=== PATIENT | female | born 1995 | race Caucasian/White ===

== ENCOUNTER 2024-01-23 22:11 | Inpatient (IN) | payer OTHER, SELFPAY ==
[2024-01-23 22:40] VITALS: BMI 49.1
[2024-01-23 22:50] LABS: Basophils Percent Auto 0.3 % (0.2-1.2); Eosinophils Absolute Auto 0.1 K/mm3 (0-0.3); Eosinophils Percent Auto 0.9 % (0-4.4); Hematocrit 37.7 % (37.0-47.0); Hemoglobin 12.7 g/dL (12.0-15.0); Immature Granulocyte Absolute 0.06 K/mm3 (0.00-0.031); Immature Granulocyte Percent A 0.5 % (0-0.5); Lymphocytes Absolute Auto 2.15 K/mm3 (0.9-3.2); Lymphocytes Percent Auto 18.4 % (18.3-44.2); Mean Corpuscular HGB Conc 33.7 g/dl (32-36); Mean Corpuscular Hemoglobin 29.1 pg (26-34); Mean Corpuscular Volume 86.3 fl (80-100); Mean Platelet Volume 12.3 fl (7.4-10.4); Monocytes Absolute Auto 0.8 K/mm3 (0.1-0.6); Monocytes Percent Auto 7.2 % (2.6-8.5); Neutrophils Absolute Auto 8.5 K/mm3 (1.3-6.7); Neutrophils Percent Auto 72.7 % (45.5-73.1); Platelet Count Result 241 k/mm3 (150-375); Red Blood Count 4.37 M/mm3 (4.2-5.4); Red Cell Distribution Width 13.3 % (11.5-14.5); White Blood Count 11.7 K/mm3 (4.5-10.0)
[2024-01-23] MEDS: ceFAZolin 2 GM/D5W 50 ML 2 GM/50 ML BAG IVPB (23:00)
[2024-01-23] MEDS: LACTATED RINGERS 1,000 ML 125 ML IV CONT (23:00)
[2024-01-23 23:53] LABS: HIV 1/2 Ab P24 Ag Result Negative (Negative)
[2024-01-24] VITALS (36 sets, daily range): BP systolic 96–145; BP diastolic 54–91; PULSE 71–104; RESP 16–20; TEMP 36.1–37.1; O2SAT 97–100
[2024-01-24] MEDS: ONDANSETRON INJ 4 MG/2 ML VIAL IV PUSH ×2 (03:49→10:15)
[2024-01-24] MEDS: ACETAMINOPHEN 500 MG TABLET 1000 MG PO (03:49)
[2024-01-24] MEDS: FAMOTIDINE 20 MG/2 ML VIAL IV PUSH (03:49)
[2024-01-24] MEDS: AZITHROMYCIN 500 MG/NS 250 ML 500 MG/250 ML BAG 250 MG IVPB (03:55)
--- NOTE | 2024-01-24 04:02 | WPDANESEPP ---
Anes - Eval Pre Procedure Procedure: Operation Date: 01/24/24 04:00 Proposed Procedures p Section - Mg Nichols MD Operation Date: 01/31/24 07:30 Proposed Procedures p Previous Section - Jeremy Mnoson MD Date/Time: 01/24/24 04:02 Surgeon: Simone Preop Diagnosis: previous c section Pre Op Diagnosis: SROM Patient Data Age: 28 Gender: F Height: 1.63 m Weight: 130 kg Last Vital Signs Pulse 90 01/24/24 03:58 BP 145/82 H 01/24/24 03:58 Allergies Allergy/AdvReac Type Severity Reaction Status Date / Time Penicillins Allergy Hives Verified 01/14/24 15:39 Home Medications Medication Instructions Recorded Confirmed Type aspirin 81 mg tablet 81 mg PO DAILY 01/14/24 01/14/24 History vits no.126-ferrous fum 1 tablet PO DAILY 01/14/24 01/14/24 History 28 mg iron-folic acid 800 mcg tablet (Classic ) sertraline 150 mg capsule 150 mg PO DAILY 01/14/24 01/14/24 History Laboratory Tests 01/23/24 01/23/24 22:45 23:27 WBC 11.7 H K/mm3 (4.5-10.0) RBC 4.37 M/mm3 (4.2-5.4) Hgb 12.7 g/dL (12.0-15.0) Hct 37.7 % (37.0-47.0) MCV 86.3 fl (80-100) MCH 29.1 pg (26-34) MCHC 33.7 g/dl (32-36) RDW 13.3 % (11.5-14.5) Plt Count 241 k/mm3 (150-375) MPV 12.3 H fl (7.4-10.4) Immature Gran % (Auto) 0.5 % (0-0.5) Neut % (Auto) 72.7 % (45.5-73.1) Lymph % (Auto) 18.4 % (18.3-44.2) Stark % (Auto) 7.2 % (2.6-8.5) Eos % (Auto) 0.9 % (0-4.4) Baso % (Auto) 0.3 % (0.2-1.2) Lymph # (Auto) 2.15 K/mm3 (0.9-3.2) Stark # (Auto) 0.8 H K/mm3 (0.1-0.6) Eos # (Auto) 0.1 K/mm3 (0-0.3) Baso # (Auto) 0.0 K/mm3 (0.0-0.1) Abs Immat Gran (auto) 0.06 H K/mm3 (0.00-0.031) Absolute Neuts (auto) 8.5 H K/mm3 (1.3-6.7) Absolute Nucleated RBC 0.000 K/mm3 (0.0-0.012) Nucleated RBC % 0.0 % (0.0-0.2) RPR Pending HIV 1&2 Ab/P24 Ag 4thGn Negative (Negative) Blood Type B Positive Antibody Screen Negative Patient hx anesthesia problems: none Family hx anesthesia problems: none Results Review: All pre-operative results and documents have been reviewed as part of the pre-operative evaluation. [facility]LY [facility] Past Medical History Medical History Anxiety Eczema GERD (gastroesophageal reflux disease) Morbid obesity PCOS (polycystic ovarian syndrome) and not yet delivered Psoriasis Ulcerative colitis Family History Family History Grandparent Diabetes mellitus Congestive heart failure Sibling Hypothyroid Hypertension Sibling Acute ITP Grandparent Cancer Social History Social History Substance use: never Spiritual care concerns: No Exam Day of Procedure 01/24/24 04:02 Patient weight: morbidly obese Heart: regular rate and rhythm Lungs: clear to auscultation Airway: Mallampati scale class III
--- NOTE | 2024-01-24 04:03 | WPDHPUPDATE1 ---
History and Physical Update Update Date/Time: 01/24/24 04:03 History and Physical has been reviewed, including an updated exam of the patient. There are NO changes in the patient's condition. Risks, benefits, and alternatives have been discussed and questions answered. Patient agrees to proceed with procedure.
--- NOTE | 2024-01-24 04:04 | PM.IMHP ---
H&P: HPI History of Present Illness Date/Time: 01/24/24 04:04 Chief Complaint: Labor Narrative: this patient is a 28-year-old multiparous female at 38 weeks gestation was in labor and has a previous delivery. this patient was scheduled to have a delivery. She labored to complete and pushed for 4 hours previously. The patient understands the details of the procedure. The procedure has been explained in detail. She understands the risks. She understands that injuries may occur that result in hospitalization, more surgery, and severe illness. She understands risk of hemorrhage and infection. She denies any chest pain or shortness of breath. She denies any nausea, vomiting, fever, chills. Review of Systems Review of Systems: All systems reviewed & are unremarkable except as noted in HPI and below Constitutional: Constitutional: Denies chills, Denies fatigue, Denies fever(s) and Denies weakness Eyes: Eyes: Denies blurry vision, Denies change in vision, Denies loss of peripheral vision, Denies loss of vision, Denies other visual disturbances and Denies eye pain ENT: Denies vertigo, Denies dizziness, Denies hearing loss, Denies mouth pain, Denies nasal obstruction, Denies neck mass and Denies neck pain Cardiovascular: Cardiovascular: Denies chest pain, Denies diaphoresis, Denies syncope, Denies leg edema and Denies dyspnea Respiratory: Respiratory: Denies chest congestion, Denies cough, Denies hemoptysis, Denies dyspnea and Denies wheezing Gastrointestinal: Gastrointestinal: Denies abdominal pain, Denies constipation, Denies diarrhea, Denies nausea and Denies vomiting Genitourinary: Genitourinary: Denies hematuria, Denies change in libido, Denies nocturia, Denies genital lesions, Denies flank pain and Denies urinary urgency Musculoskeletal: Musculoskeletal: Denies abnormal gait, Denies back pain, Denies myalgias, Denies arthralgias, Denies joint swelling, Denies muscle weakness and Denies neck pain Integumentary/Breasts: Skin/Breast: Denies swelling, Denies breast pain, Denies breast mass, Denies dry skin, Denies nipple discharge, Denies unusual bruising and Denies jaundice Neurologic: Denies Neuro-related abnormal movements, Denies Abnormal speech present, Denies abnormal gait, Denies behavioral changes, Denies confusion, Denies vertigo, Denies dizziness, Denies syncope, Denies loss of vision, Denies memory loss, Denies convulsions and Denies weakness Psychiatric: Psychiatric: Denies abnormal sleep pattern, Denies behavioral changes, Denies change in libido, Denies confusion, Denies depression, Denies anhedonia and Denies memory loss Endocrine: Endocrine: Reports no additional endocrine complaints, Denies change in libido and Denies fatigue Hematologic/Lymphatic: Hematologic/Lymphatic: Reports no additional hematologic/lymphatic complaints Allergic/Immunologic: Allergic/Immunologic: Reports no additional allergic/immunologic complaints and Denies wheezing PMFSH Past Medical History Medical History Morbid obesity and not yet delivered Family History Family History Grandparent Diabetes mellitus Congestive heart failure Sibling Hypothyroid Hypertension Sibling Acute ITP Grandparent Cancer Social History Social History Substance use: never Spiritual care concerns: No Meds Home Medications and Allergies Home Medications Medication Instructions Recorded Confirmed Type aspirin 81 mg tablet 81 mg PO DAILY 01/14/24 01/14/24 History vits no.126-ferrous fum 1 tablet PO DAILY 01/14/24 01/14/24 History 28 mg iron-folic acid 800 mcg tablet (Classic ) sertraline 150 mg capsule 150 mg PO DAILY 01/14/24 01/14/24 History Allergies Allergy/AdvReac Type Severity Reaction Status Date / Time P
[2024-01-24] MEDS: LACTATED RINGERS 1,000 ML 125 ML IV CONT (04:12)
--- NOTE | 2024-01-24 05:30 | W.PM.OBCSD ---
OB - Delivery Note Procedure Delivery date: 01/24/24 Pre-op diagnosis: Previous Delivery Post-op Diagnosis: Same Induction method: None Procedure Performed: Repeat Surgeon: Mg Nichols MD Anesthesia type: Spinal Description of Procedure/Findings: The patient was taken the operating room.? She was prepped and draped in dorsal supine position with a leftward tilt.? This was done after spinal anesthetic was applied.? A low-transverse skin incision was made and carried down till of the fascia with the knife.? The fascial incision was made with the knife.? The fascial incision was extended laterally with Guthrie scissors.? The fascia was tented upward superiorly and inferiorly the rectus muscles were dissected off bluntly.? The rectus muscles were the midline.? The preperitoneal fat and peritoneum were dissected open bluntly at the superior aspect of the rectus muscles.? The peritoneal incision was extended superior and inferior with good position of bladder.? The uterine incision was made with a scalpel down to the level of the amniotic cavity.? The amniotic cavity was entered bluntly.? The was delivered.? The cord was clamped and cut and the was handed off to waiting pediatric staff.? Cord bloods were obtained.? The placenta was removed manually.? The uterus was exteriorized.? The uterus was cleared of all clots, debris and membranes.? The uterus was closed in 0 Vicryl running lock fashion.? An imbricating over a was placed along the incision line as well.? The uterus was returned to the abdomen.? The gutters were cleared of all clots and debris.? The fascia was closed with 0 Vicryl running fashion.? The subcutaneous tissue was irrigated pinpoint bleeders were cauterized.? The skin was closed with subcuticular absorbable josé luis.? The skin incision line was covered with glue.? The patient tolerated the procedure well.? She has taken recovery room in stable condition.? Sponge lap and needle counts were correct x2.? Baby Weeks of gestation at delivery: 38
[2024-01-24] MEDS: MORPHINE SULFATE INJ (*CRX) 10 MG/ML AMP 2 MG IV PUSH ×3 (06:40→06:53)
--- NOTE | 2024-01-24 07:30 | PC.NURSE ---
Patient transferred to post room #288 per stretcher from labor and delivery. Support person present. Oriented to unit, room, information board, rooming in, admission packet and security measures. Patient verbalizes understanding.
[2024-01-24] MEDS: OXYTOCIN 30 UNITS/NS 500 ML 30 UNITS/500 ML BAG 125 UNITS IV CONT (08:52)
[2024-01-24] MEDS: KETOROLAC 15 MG/ML VIAL (*BKC) IV PUSH ×2 (09:47→17:05)
[2024-01-24] MEDS: SIMETHICONE 80 MG TAB.CHEW PO ×2 (09:48→12:23)
[2024-01-24] MEDS: LIDOCAINE 5% PATCH 1 PATCH TRANSDERM (10:15)
[2024-01-24 11:26] LABS: Rapid Plasma Reagin Non-Reactive (NonReactive)
[2024-01-24] MEDS: SERTRALINE HCL 50 MG TABLET 150 MG PO (12:23)
[2024-01-24] MEDS: DEXTROSE 5%/0.45% SOD CHL 1,000 ML 125 ML IV CONT (12:51)
--- NOTE | 2024-01-24 13:18 | PC.NURSE ---
[id number] Introductions were made, then consulted with patient to assess needs related to . Mother led the conversation with her?plans to feed?her infant and the?experience so far. Encouraged understanding of the benefits of skin to skin (demonstrating unwrapping and placing upright on her chest), stimulating with massage touch, changing positions to encourage wakefulness, how to watch for early feeding cues, responsive feeding, feeding on demand (aiming for 8-12 times in 24 hours, about every 2-3 hours), milk production, building/maintaining a milk supply, duration of feeding, signs of adequate intake/output and how to record on the feeding sheet. Mother works well with her with encouragement, education and shares her milk went away after 3 weeks with her first child. Mother demonstrates the skill of hand expression and expresses copious milk from each breast. Infant is now less than 6 hours old and reluctant to breastfeed. Reviewed positioning and ear, shoulder, hip alignment, supporting the breast to facilitate a deep latch, asymmetrical latch (off-center), leading with the chin with a big, open, wide gape and body close to mother. latched optimally to the left breast in cross cradle position. Education given to the mother of how to visualize the suckling (with good rocking jaw motion), swallows (dropping of the lower jaw) and how to listen for drinking at the breast (the ka sound) which demonstrates, however; is not interested in maintaining at this time. Infant was able to maintain latch without pain to mother. Discussed protecting the nipple with optimal positioning and latching. prefers to gaze at parent right now rather than latch. Encouraged [id number] and responding to feeding cues. Reviewed comfort measures of healing with a warm, wet washcloth to rinse breast, then leave open to air-dry, good handwashing when or touching the breast/nipples to prevent infection. Mother voiced understanding of skin to skin, stimulating with massage touch, responsive feedings, hand expressed colostrum, talking to to encourage if it has been 2 -2.5 hours since the start of the last , to call if does not latch, or if there is discomfort with . Resources used for education were facilitated with the visual educational handouts/ tool/mom and baby guide. Inpatient/outpatient resources provided with feeding sheet, name written on the communication board, and the mom/baby guide. Parents voiced understanding of information, demonstrated learning and will call if there is a request for assistance. Visitors are at bedside. 1225 - Purposefully rounded to assess for and mother shared that infant breastfed on both breasts with more feeding on the right than the left swallowing without pain.
[2024-01-24] MEDS: DOCUSATE SODIUM 100 MG CAPSULE PO (17:05)
[2024-01-24] MEDS: ACETAMINOPHEN 325 MG TABLET 650 MG PO (17:06)
[2024-01-25] MEDS: IBUPROFEN 600 MG TABLET PO ×4 (00:09→22:00)
[2024-01-25] MEDS: ACETAMINOPHEN 325 MG TABLET 650 MG PO ×4 (00:09→22:00)
[2024-01-25] MEDS: HYDROcodone/acetaminophen (*CRX) 10-325 MG TABLET 1 TAB PO ×3 (01:11→15:00)
[2024-01-25 05:06] LABS: Basophils Percent Auto 0.2 % (0.2-1.2); Eosinophils Absolute Auto 0.1 K/mm3 (0-0.3); Eosinophils Percent Auto 0.8 % (0-4.4); Hematocrit 32.3 % (37.0-47.0); Hemoglobin 10.4 g/dL (12.0-15.0); Immature Granulocyte Absolute 0.05 K/mm3 (0.00-0.031); Immature Granulocyte Percent A 0.4 % (0-0.5); Lymphocytes Absolute Auto 1.53 K/mm3 (0.9-3.2); Lymphocytes Percent Auto 13.7 % (18.3-44.2); Mean Corpuscular HGB Conc 32.2 g/dl (32-36); Mean Corpuscular Hemoglobin 28.8 pg (26-34); Mean Corpuscular Volume 89.5 fl (80-100); Mean Platelet Volume 12.1 fl (7.4-10.4); Monocytes Absolute Auto 0.8 K/mm3 (0.1-0.6); Monocytes Percent Auto 6.7 % (2.6-8.5); Neutrophils Absolute Auto 8.7 K/mm3 (1.3-6.7); Neutrophils Percent Auto 78.2 % (45.5-73.1); Platelet Count Result 195 k/mm3 (150-375); Red Blood Count 3.61 M/mm3 (4.2-5.4); Red Cell Distribution Width 13.2 % (11.5-14.5); White Blood Count 11.2 K/mm3 (4.5-10.0)
[2024-01-25 08:25] VITALS: BP 132/75; PULSE 84; RESP 16; TEMP 36.3; O2SAT 99
[2024-01-25] MEDS: MULTIVIT/MIN/PREN/FOL AC/IRON TABLET 1 TAB PO (08:29)
[2024-01-25] MEDS: DOCUSATE SODIUM 100 MG CAPSULE PO ×2 (08:29→15:57)
[2024-01-25] MEDS: SIMETHICONE 80 MG TAB.CHEW PO ×3 (08:29→15:57)
[2024-01-25] MEDS: SERTRALINE HCL 50 MG TABLET 150 MG PO (08:30)
[2024-01-25] MEDS: LIDOCAINE 5% PATCH 1 PATCH TRANSDERM (14:11)
--- NOTE | 2024-01-25 15:10 | WPDANLDPN2 ---
Anes-Prog Note L&D Date/Time: 01/25/24 15:10 Comfortable throughout: section Neuraxial method: spinal Epidural/Spinal procedure site: clean & non-tender Neuro status: Neuro function grossly intact. Cardiovascular status: normal Respiratory status: normal Airway patency: baseline Mental status: baseline Post-Op hydration status: normal Vital Signs: Last Vital Signs Temp 36.3 C L 01/25/24 08:25 Pulse 84 01/25/24 08:25 Resp 16 01/25/24 08:25 BP 132/75 01/25/24 08:25 Pulse Ox 99 01/25/24 08:25 O2 Del Method Room Air 01/24/24 07:15 Pain score (VAS): 3/10 I/O: Intake & Output 01/24/24 01/25/24 01/25/24 23:59 07:59 15:59 Intake Total 500 Output Total 400 400 Balance 100 -400 Post-procedural complaints: none Patient feedback: Patient satisfied with anesthetic care.
--- NOTE | 2024-01-25 15:10 | WPDANLDNPN2 ---
Anes-Prog Note L&D-Neuraxial Date/Time: 01/25/24 15:10 Neuraxial medications: intrathecal PF morphine Opiod-related complaints: none Patient feedback: Patient satisfied with post-operative pain management.
--- NOTE | 2024-01-25 15:20 | PC.NURSE ---
[id number] Purposefully rounded to assess for needs and concerns. We discussed the weight loss of 6% at about 17 hours of life. Mother has a history of low milk supply. Reviewed the techniques that mother is using to protect her milk supply with this infant. Mother shared she has not been able to hand express milk today like she did yesterday. She has initiated pumping with her personal pump in between sessions. There's visitors in the room and mother declines working with at this time. is cradled in mothers arms. Encouraged upright [id number] for wakefulness to breastfeed. Mother voiced understanding the information. 1245 - Mother shared she independently latched her infant, then supplemented to help prevent weight loss.
[2024-01-25 20:00] VITALS: BP 141/83; PULSE 56; RESP 20; TEMP 36.7; O2SAT 95
--- NOTE | 2024-01-25 20:57 | P.PNOB_ITS ---
OB - PN: Subj Subjective Date/time seen: 01/25/24 20:57 Interval history: POD#1 s/p RLTCS Doing well, pain well controlled and pumping, supplementing with colostrum Voiding without issue OB - PN: Obj Data Labs 01/25/24 04:59 Labs: Laboratory Results - last 24 hr 01/25/24 04:59 WBC 11.2 H RBC 3.61 L Hgb 10.4 L Hct 32.3 L MCV 89.5 MCH 28.8 MCHC 32.2 RDW 13.2 Plt Count 195 MPV 12.1 H Immature Gran % (Auto) 0.4 Neut % (Auto) 78.2 H Lymph % (Auto) 13.7 L Liberty % (Auto) 6.7 Eos % (Auto) 0.8 Baso % (Auto) 0.2 Lymph # (Auto) 1.53 Liberty # (Auto) 0.8 H Eos # (Auto) 0.1 Baso # (Auto) 0.0 Abs Immat Gran (auto) 0.05 H Absolute Neuts (auto) 8.7 H Absolute Nucleated RBC 0.000 Nucleated RBC % 0.0 OB - PN A/P Assessment and Plan (1) Previous delivery, delivered: Code(s): O34.219 - Maternal care for unspecified type scar from previous delivery Status: Acute Plan day: 1 Plan: routine care Time Spent With Patient Time: Total time spent is greater than 50% in coordination of care (as documented) at patient's floor/unit and/or counseling patient: Review of Systems Review of Systems: All systems reviewed & are unremarkable except as noted in HPI and below Exam Const: General: cooperative, healthy appearing, comfortable and no acute distress HENMT: Head: normal to inspection Ears: external ears normal Face/Nose/Sinus: Normal external nose present and normal facial exam Eyes: General: appearance normal, both eyes and all related structures Neck: Neck: normal visual inspection, trachea midline and supple Resp: Effort & Inspection: normal respiratory effort GI: GI Palp: No abdominal tenderness, No Soft to palpation, No Tenderness to palpation present (GI) and No Palpable mass present Other: incision c/d/i Skin: General skin exam: normal color and no rashes or lesions noted Neuro: General: oriented to person, oriented to place and oriented to time Extrem: General: normal to inspection, no joint enlargement, no clubbing, cyanosis or edema, no pedal edema and no calf tenderness Psych: Appearance: grossly normal Mental Status: mental status grossly normal Speech and movement: Normal speech and movement present
[2024-01-25] MEDS: HYDROcodone/acetaminophen (*CRX) 5-325 MG TABLET 1 TAB PO (22:00)
[2024-01-26] MEDS: IBUPROFEN 600 MG TABLET PO ×2 (05:00→10:42)
[2024-01-26] MEDS: HYDROcodone/acetaminophen (*CRX) 5-325 MG TABLET 1 TAB PO ×2 (05:00→08:51)
[2024-01-26] MEDS: ACETAMINOPHEN 325 MG TABLET 650 MG PO ×2 (05:00→10:41)
[2024-01-26 08:00] VITALS: PULSE 81; RESP 18; O2SAT 100
--- NOTE | 2024-01-26 08:05 | PM.OBPNVD ---
OB - PN: Subj Subjective Date/time seen: 01/26/24 08:05 Interval history: POD#2 s/p RLTCS Doing well, pain well controlled and pumping, supplementing with colostrum Voiding without issue OB - PN: Obj Data Labs 01/25/24 04:59 OB - PN A/P Plan day: 2 Plan: routine care and discharge home Time Spent With Patient Time: Total time spent is greater than 50% in coordination of care (as documented) at patient's floor/unit and/or counseling patient: Review of Systems Review of Systems: All systems reviewed & are unremarkable except as noted in HPI and below Exam Const: General: cooperative and healthy appearing Chest: Chest palpation & inspection: normal inspection of the chest Resp: Effort & Inspection: normal respiratory effort GI: Other: incision CDI Neuro: General: patient oriented x3
--- NOTE | 2024-01-26 08:06 | PM.OBDSVD ---
DS: Admitting Diagnosis Discharge Date 01/26/24 Admitting Diagnosis repeat DS: Discharge Diagnosis Discharge Diagnosis (1) Previous delivery, delivered: Code(s): O34.219 - Maternal care for unspecified type scar from previous delivery Status: Acute OB - DS: Summary OB Procedures : None OB Procedures Intrapartum: OB Procedures: : None Peripartum Data Procedures: Procedures Operation Date: 01/24/24 04:00 Actual Procedure Side Surgeon p Section Not Applicable Mg Nichols MD Operation Date: 01/31/24 07:30 <No data on this case meets the specified criteria> Time Spent with Patient Time attestation: Total time spent providing and/or coordinating discharge services: Discharge Plan Discharge Attending physician on discharge: Jeremy Monson Discharging Clinician: Erika Sandhu Patient Disposition: Home, Self-Care Activity: pelvic rest Diet: regular Patient Instructions: Antibiotic Form Stand Alone Forms: General Discharge Information Follow-up/Referrals: Jeremy Monson MD [Physician] - 1 Week Discharge Medications: New hydrocodone-acetaminophen 5-325 mg Tablet 1 tablet PO Q3H PRN (Reason: Breakthrough Pain Rated 4-6) Qty: 25 0RF Continued Classic 28 mg iron- 800 mcg Tablet 1 tablet PO DAILY sertraline 150 mg Capsule 150 mg PO DAILY Discontinued aspirin 81 mg Tablet 81 mg PO DAILY Date of admission: 01/23/24 22:11 Primary Care Provider: UNKNOWN,DOCTOR Admitting Provider: Jeremy Monson Attending physician on admission: Jeremy Monson Condition: Stable
[2024-01-26 08:20] VITALS: BP 112/66; PULSE 81; RESP 18; TEMP 36.2; O2SAT 100
[2024-01-26] MEDS: SIMETHICONE 80 MG TAB.CHEW PO (08:49)
[2024-01-26] MEDS: DOCUSATE SODIUM 100 MG CAPSULE PO (08:49)
[2024-01-26] MEDS: SERTRALINE HCL 50 MG TABLET 150 MG PO (08:49)
[2024-01-26] MEDS: MULTIVIT/MIN/PREN/FOL AC/IRON TABLET 1 TAB PO (08:49)
--- NOTE | 2024-01-26 12:46 | PC.NURSE ---
Patient viewed the discharge video Mother & Baby Care, The First Two Weeks . Patient was given the opportunity and encouraged to ask questions. Patient verbalized understanding of information shared and has been given the mother/baby guide for home reference.
--- NOTE | 2024-01-26 13:50 | PC.NURSE ---
[id number] Consulted with mother concerning needs as she has a history of low milk supply, PCOS and a BMI of 49. She shared her ability to independently latch infant most latches, however; bottle fed (one feed was 59mls) last night to give her sore nipples a break. Upon assessing the left sore nipple no injury is visualized and mother states it is better now after the break last night. There's a Minor gland that is red and irritated and appears to be healing. Mother is feeding appropriately for growth of and understands stimulating to eat if needed along with and formula bottle feeding. Infant has had appropriate feedings in the last 24 hours meets the outcomes for weight, output, blood sugar and jaundice at this time. Mother shared that she had pumped some milk this morning and the amount was not measurable in the bottle as it did not completely cover the bottom of the 4 oz size bottle. Reinforced understanding of milk production, transition of milk, signs of adequate intake, transition of stool, prevention/relief of engorgement, plugged ducts, mastitis, responsive watching for feeding cues, the different methods of stimulating to breastfeed 1-3 hours after the start of the last feeding, community resources, pumping and bottle feeding and when to call a provider using the resource of the feeding sheet along with the mom and baby guide. Mother voiced understanding of the information shared, is confident to continue feeding her infant at home, when to call for assistance, denies any additional assistance or education at this time. Reported to the Primary RN.
[2024-01-27 10:12] VITALS: BP 138/88; PULSE 87; RESP 18; TEMP 37.1; O2SAT 100
== END 2024-01-26 14:28 | disposition home or self-care (01) | DRG 788 ==
LOC: ANHOB2 01-26 13:12 → ANHLDR 01-27 10:18 → ANHOB2 01-27 10:18
PROVIDERS: Admitting Provider Obstetrics & Gynecology; Visit Provider Obstetrics & Gynecology
PROC: 10D00Z1 Extraction of Products of Conception, Low, Open Approach (ICD-10-PCS; CPT 59514; principal; 2024-01-24 04:00)
DX: O34.219 Maternal care for unspecified type scar from previous cesarean delivery (principal); O99.214 Obesity complicating childbirth; E66.01 Morbid (severe) obesity due to excess calories; Z3A.38 38 weeks gestation of pregnancy; Z37.0 Single live birth
CPT/HCPCS: 36415; 85025; 86592; 86703; 86850; 86900; 86901; A9270; G0432; J0456; J0690; J1885; J2270; J2274; J2371; J2405; J2590; J2795; J7120